=== PATIENT | female | born 1995 | race African-American/Black ===

== ENCOUNTER 2018-03-22 14:33 | Emergency (ER) | payer MEDICAID ==
[~2018-03-22] VITALS: Ht 160 cm; Wt 63.0 kg
[2018-03-22 15:40] LABS: BASOPHILS % 0.9 % (0.0-2.0); EOSINOPHILS % 0.1 % (0.0-5.0); HEMATOCRIT. 42.2 % (36.0-48.0); HEMOGLOBIN. 14.1 g/dL (12.0-16.0); MEAN CORPUSCULAR HEMOGLOBIN 28.6 pg (28.0-32.0); MEAN CORPUSCULAR VOLUME 85.3 fL (81.0-99.0); MEAN PLATELET VOLUME 9.2 fl (7.4-10.4); MONOCYTES % 6.8 % (2.0-8.0); NEUTROPHILS % 68.2 % (40.0-76.0); PLATELET 287 x1000/uL (130-400); RED BLOOD CELL COUNT 4.94 mill/uL (4.2-5.4); RED CELL DISTRIBUTION WIDTH 15.9 % (11.6-14.6)
[2018-03-22 15:43] LABS: CHLORIDE 100 mEq/L (98-107)
[2018-03-22 15:44] LABS: INR 1.1; PROTHROMBIN TIME 11.3 sec (9.4-11.6)
[2018-03-22 17:00] LABS: CLARITY URINE CLOUDY (CLEAR); COLOR URINE DARK YELLOW (YELLOW); KETONES URINE 4+ (NEGATIVE); LEUKOCYTE ESTERASE URINE 1+ (NEGATIVE); NITRITE URINE NEGATIVE (NEGATIVE); OCCULT BLOOD URINE NEGATIVE (NEGATIVE); PROTEIN URINE 1+ (NEGATIVE); SPECIFIC GRAVITY URINE 1.033 (1.005-1.030)
[2018-03-22] MEDS ORDERED: SODIUM CHLORIDE 0.9% 1,000 ML IV ONE (17:08)
[2018-03-22] MEDS ORDERED: PYRIDOXINE HCL 50MG TABLET PO ONE (17:15)
[2018-03-22 17:40] LABS: *AMPHETAMINES SCREEN URINE NEGATIVE (NEGATIVE); *BARBITURATES SCREEN URINE NEGATIVE (NEGATIVE); *BENZODIAZEPINES SCREEN URINE NEGATIVE (NEGATIVE); *COCAINE SCREEN URINE NEGATIVE (NEGATIVE)
[2018-03-22 17:41] LABS: METHADONE URINE SCREEN NEGATIVE (NEGATIVE); OPIATES URINE SCREEN NEGATIVE (NEGATIVE); PHENCYCLIDINE URINE SCREEN NEGATIVE (NEGATIVE)
[2018-03-22 17:42] LABS: CANNABINOID URINE SCREEN PRESUMTIVE POSITIVE (NEGATIVE)
[2018-03-22 21:10] VITALS: BP 107/58
== END 2018-03-22 21:15 | disposition home or self-care (01) ==
LOC: ER 15:44
DX: O26.891 Other specified pregnancy related conditions, first trimester (principal); O21.9 Vomiting of pregnancy, unspecified; O99.331 Smoking (tobacco) complicating pregnancy, first trimester; R50.9 Fever, unspecified; R10.9 Unspecified abdominal pain; O99.89 Other specified diseases and conditions complicating pregnancy, childbirth and the puerperium; F17.200 Nicotine dependence, unspecified, uncomplicated; Z3A.01 Less than 8 weeks gestation of pregnancy
CPT/HCPCS: 36415; 76705; 76801; 80053; 80305; 81003; 81025; 83690; 84702; 85025; 85610; 86850; 86900; 86901; 96360; 99285; J7030

== ENCOUNTER 2023-03-27 18:58 | Inpatient (IN) | payer MEDICAID ==
[~2023-03-27] VITALS: Ht 160 cm; Wt 97.1 kg
[2023-03-27 19:35] LABS: CHLORIDE 102 mEq/L (98-107)
[2023-03-27 19:41] LABS: BASOPHILS % 0.5 % (0.0-2.0); EOSINOPHILS % 0.2 % (0.0-5.0); HEMATOCRIT. 41.7 % (36.0-48.0); HEMOGLOBIN. 13.9 g/dL (12.0-16.0); LYMPHOCYTES % 29.9 % (20.0-50.0); MEAN CORPUSCULAR HEMOGLOBIN 30.8 pg (28.0-32.0); MEAN CORPUSCULAR VOLUME 92.5 fL (81.0-99.0); MEAN PLATELET VOLUME 8.6 fl (7.4-10.4); MONOCYTES % 5.8 % (2.0-8.0); NEUTROPHILS % 63.6 % (40.0-76.0); PLATELET 328 x1000/uL (130-400); RED BLOOD CELL COUNT 4.51 mill/uL (4.2-5.4); RED CELL DISTRIBUTION WIDTH 14.3 % (11.6-14.6)
[2023-03-27 19:43] LABS: HCG SCREEN POSITIVE
[2023-03-27 22:32] LABS: CLARITY URINE TURBID (CLEAR); COLOR URINE YELLOW (YELLOW); KETONES URINE 1+ (NEGATIVE); LEUKOCYTE ESTERASE URINE 3+ (NEGATIVE); NITRITE URINE NEGATIVE (NEGATIVE); OCCULT BLOOD URINE NEGATIVE (NEGATIVE); PROTEIN URINE 1+ (NEGATIVE); SPECIFIC GRAVITY URINE 1.026 (1.005-1.030)
[2023-03-27] MEDS ORDERED: ACETAMINOPHEN 500MG TABLET PO NR (22:45)
[2023-03-27] MEDS ORDERED: ONDANSETRON 4MG ODT PO NR (22:45)
[2023-03-28] MEDS ORDERED: DEXT 5%/0.45% NACL KCL 10MEQ/L 1,000 ML IV ONE (02:00)
[2023-03-28 02:39] LABS: PARTIAL THROMBOPLASTIN TIME 25.9 sec (23.4-31.0); PROTHROMBIN TIME 10.7 sec (9.6-11.0)
[2023-03-28] MEDS ORDERED: MORPHINE SULFATE 4 MG/ML CPJ (NOT FOR IM USE) IV ONE (03:15)
[2023-03-28 03:45] VITALS: BP 133/84
[2023-03-28 03:58] VITALS: BP 133/84
[2023-03-28] MEDS ORDERED: LACTATED RINGERS 1,000 ML IV SCH ×2 (05:45→09:00)
[2023-03-28] MEDS ORDERED: MORPHINE SULFATE 2 MG/ML CPJ (NOT FOR IM USE) IV NR (07:00)
[2023-03-28] MEDS ORDERED: PROPOFOL 200MG/20ML VIAL IV ONE (08:03)
[2023-03-28] MEDS ORDERED: MIDAZOLAM HCL 2 MG/2 ML VIAL ONE (08:03)
[2023-03-28] MEDS ORDERED: SUCCINYLCHOLINE CHLORIDE 200MG/10ML IV ONE (08:26)
[2023-03-28] MEDS ORDERED: CEFAZOLIN SODIUM 1000MG/VIAL ONE (08:26)
[2023-03-28] MEDS ORDERED: ROCURONIUM BROMIDE 10MG/ML VIAL 5ML IV ONE (08:26)
[2023-03-28] MEDS ORDERED: DEXAMETHASONE 4MG/ML 1ML VIAL ONE (08:26)
[2023-03-28] MEDS ORDERED: ONDANSETRON HCL 4MG/2ML INJ ONE (08:26)
[2023-03-28] MEDS ORDERED: FENTANYL CITRATE/PF 50MCG/ML 2ML VIAL ONE ×2 (08:27→09:29)
[2023-03-28] MEDS ORDERED: KETOROLAC 30MG/ML VIAL ONE (08:37)
[2023-03-28] MEDS ORDERED: ALBUMIN HUMAN 12.5GM/50ML (25%) IV ONE ×2 (08:41)
[2023-03-28 08:59] LABS: HEMOGLOBIN 9.8 g/dL (12.0-16.0)
[2023-03-28] MEDS ORDERED: LABETALOL 5MG/ML SYR 20 MG/4 ML SYRINGE IV PRN (09:15)
[2023-03-28] MEDS ORDERED: HYDROMORPHONE HCL/PF 2MG/ML CPJ IV PRN (09:15)
[2023-03-28] MEDS ORDERED: MEPERIDINE HCL/PF 25MG/ML CPJ IV PRN (09:15)
[2023-03-28] MEDS ORDERED: ONDANSETRON HCL 4MG/2ML INJ IV PRN ×2 (09:15→09:45)
[2023-03-28] MEDS ORDERED: LIDOCAINE HCL 1% 20ML VIAL (Pyxis) INJ ONE (09:22)
[2023-03-28] MEDS ORDERED: SKIN ADHESIVE 0.7 GM EA TOP ONE (09:26)
[2023-03-28] MEDS ORDERED: NALOXONE HCL 0.4MG/ML VIAL IV PRN (10:00)
[2023-03-28 16:00] VITALS: BP 106/56
[2023-03-28] MEDS: CEFAZOLIN 1000MG PREMIX 50 ML IV SCH (16:31)
[2023-03-28] MEDS: MORPHINE SULFATE 2 MG/ML CPJ (NOT FOR IM USE) IV PRN ×2 (18:13→22:00)
[2023-03-28 20:00] VITALS: BP 100/40
[2023-03-29] VITALS: BP 106/60
[2023-03-29] MEDS: CEFAZOLIN 1000MG PREMIX 50 ML IV SCH ×3 (00:33→16:00)
[2023-03-29] MEDS: MORPHINE SULFATE 2 MG/ML CPJ (NOT FOR IM USE) IV PRN ×3 (03:20→14:07)
[2023-03-29 04:00] VITALS: BP 115/72
[2023-03-29] MEDS: LACTATED RINGERS 1,000 ML IV SCH (05:44)
[2023-03-29 07:12] LABS: BASOPHILS % 0.1 % (0.0-2.0); HEMATOCRIT. 21.7 % (36.0-48.0); HEMOGLOBIN. 7.1 g/dL (12.0-16.0); LYMPHOCYTES % 18.2 % (20.0-50.0); MEAN CORPUSCULAR HEMOGLOBIN 30.1 pg (28.0-32.0); MEAN CORPUSCULAR VOLUME 92.2 fL (81.0-99.0); MEAN PLATELET VOLUME 8.3 fl (7.4-10.4); MONOCYTES % 7.2 % (2.0-8.0); NEUTROPHILS % 74.5 % (40.0-76.0); PLATELET 191 x1000/uL (130-400); RED BLOOD CELL COUNT 2.36 mill/uL (4.2-5.4); RED CELL DISTRIBUTION WIDTH 14.3 % (11.6-14.6)
[2023-03-29 08:00] VITALS: BP 116/67
[2023-03-29 12:00] VITALS: BP 108/50
[2023-03-29 16:00] VITALS: BP 98/39
[2023-03-29 23:14] VITALS: BP 109/66
[2023-03-30] VITALS: BP 110/60
[2023-03-30] MEDS: LACTATED RINGERS 1,000 ML IV SCH ×2 (02:17→21:29)
[2023-03-30] MEDS: MORPHINE SULFATE 2 MG/ML CPJ (NOT FOR IM USE) IV PRN ×3 (02:18→22:17)
[2023-03-30 04:00] VITALS: BP 113/58
[2023-03-30 08:00] VITALS: BP 102/57
[2023-03-30] MEDS ORDERED: BISACODYL 10MG SUPP PR NR (08:15)
[2023-03-30 11:38] LABS: BASOPHILS % 0.3 % (0.0-2.0); EOSINOPHILS % 1.3 % (0.0-5.0); HEMATOCRIT. 21.7 % (36.0-48.0); HEMOGLOBIN. 7.3 g/dL (12.0-16.0); LYMPHOCYTES % 50.7 % (20.0-50.0); MEAN CORPUSCULAR HEMOGLOBIN 31.1 pg (28.0-32.0); MEAN CORPUSCULAR VOLUME 92.4 fL (81.0-99.0); MEAN PLATELET VOLUME 7.6 fl (7.4-10.4); NEUTROPHILS % 41.7 % (40.0-76.0); PLATELET 207 x1000/uL (130-400); RED BLOOD CELL COUNT 2.34 mill/uL (4.2-5.4); RED CELL DISTRIBUTION WIDTH 14.3 % (11.6-14.6)
[2023-03-30 12:00] VITALS: BP 105/66
[2023-03-30 16:00] VITALS: BP 95/48
[2023-03-30 20:00] VITALS: BP 98/46
[2023-03-31] VITALS: BP_SYST 117; BP_SYST 120; BP_DIAS 58; BP_DIAS 61
[2023-03-31] MEDS: MORPHINE SULFATE 2 MG/ML CPJ (NOT FOR IM USE) IV PRN (05:39)
[2023-03-31] MEDS ORDERED: IBUP-2029 MT (06:55)
[2023-03-31] MEDS ORDERED: MULT-1116 MT (06:55)
[2023-03-31] MEDS ORDERED: FERR325T6 MT (06:55)
[2023-03-31 08:00] VITALS: BP 104/63
[2023-03-31 08:32] VITALS: BP 104/63
== END 2023-03-31 10:54 | disposition home or self-care (01) | DRG 547 ==
LOC: ER 19:11 → MICUSO 03-28 02:22 → EDBEDREQSVC 03-28 02:29 → EDBEDREQTM 03-28 02:29 → 3WST 03-28 03:30 → MICUSO 03-28 11:33 → 6EST 03-28 13:43
PROVIDERS: ADMIT Obstetrics & Gynecology; ATTEND Obstetrics & Gynecology
PROC: 0UQ60ZZ Repair Left Fallopian Tube, Open Approach (ICD-10-PCS; principal; 2023-03-28)
PROC: 0W9G0ZZ Drainage of Peritoneal Cavity, Open Approach (ICD-10-PCS; 2023-03-28)
DX: O00.90 Unspecified ectopic pregnancy without intrauterine pregnancy (principal); K66.1 Hemoperitoneum; F17.210 Nicotine dependence, cigarettes, uncomplicated; D64.9 Anemia, unspecified; E66.9 Obesity, unspecified
CPT/HCPCS: 36415; 76801; 80053; 81003; 84702; 84703; 85014; 85018; 85025; 86850; 86900; 88305; 99285; C1893; J0330; J0690; J1100; J1170; J1885; J2250; J2270; J2405; J2704; J3010; J3490; J7120; P9047; Q0162